=== PATIENT | female | born 1940 | race Caucasian/White ===

== ENCOUNTER 2016-05-14 07:24 | Inpatient (IN) | payer MEDICARE, OTHER ==
[2016-05-08 14:01] VITALS: Ht 152.4 cm; Wt 68.3 kg
[2016-05-08 14:13] VITALS: BP_SYST 148; RESP 18; TEMP 98
[2016-05-12 17:04] VITALS: BP_SYST 149; RESP 16; TEMP 98.3
[2016-05-13 19:45] VITALS: BP_SYST 88
[2016-05-13 21:45] VITALS: BP_SYST 126
[2016-05-14] VITALS (14 sets, daily range): BP systolic 122–159; RESP 16–20; TEMP 98–100.1
[~2016-05-14] VITALS: Ht 152.4 cm; Wt 68.3 kg
[~2016-05-14 07:24] MED LIST: CEFAZOLIN 2,000 MG in SODIUM CHLORIDE 0.9% 100 ML IV ONE
[2016-05-14] MEDS ORDERED: GLYCOPYRROLATE 0.2 MG/ML VIAL IV ONE ×2 (07:30→13:31)
[2016-05-14] MEDS ORDERED: LACT RINGERS 1,000 ML IV SCH (07:30)
[2016-05-14] MEDS ORDERED: MIDAZOLAM 2 MG/2 ML INJ IV ONE (07:30)
[2016-05-14] MEDS: LIDOCAINE 1% BUFFERED 1 ML SYR INTRADERM PRN ×2 (08:38→09:49)
[2016-05-14] MEDS ORDERED: ONDANSETRON 4 MG VIAL IV PRN ×2 (12:55→13:15)
[2016-05-14] MEDS ORDERED: CHLORASEPTIC 180 ML BTL PO PRN (12:55)
[2016-05-14] MEDS ORDERED: MORPHINE 4 MG/ML SYR IV PRN ×2 (12:55→13:15)
[2016-05-14] MEDS ORDERED: MORPHINE 2 MG/ML SYR IV PRN ×2 (12:55→13:15)
[2016-05-14] MEDS ORDERED: OXYCODONE 5 MG TAB PO PRN (13:15)
[2016-05-14] MEDS ORDERED: DILAUDID 1 MG/ML AMP IV PRN (13:15)
[2016-05-14] MEDS ORDERED: MEPERIDINE 25 MG/ML IV PRN (13:15)
[2016-05-14] MEDS ORDERED: FENTANYL 100 MCG/2 ML AMP IV ONE (13:31)
[2016-05-14] MEDS ORDERED: PHENYLEPHRINE 10 MG/ML VIAL IV ONE (13:31)
[2016-05-14] MEDS ORDERED: DEXAMETHASONE 4 MG/ML VIAL IV ONE (13:31)
[2016-05-14] MEDS ORDERED: ROCURONIUM 50 MG VIAL IV ONE (13:31)
[2016-05-14] MEDS ORDERED: ACETAMINOPHEN 1,000 MG/100 ML IV ONE (13:31)
[2016-05-14] MEDS ORDERED: PROPOFOL 20 ML VIAL IV ONE (13:31)
[2016-05-14] MEDS ORDERED: NEOSTIGMINE 10 MG/10 ML VIAL IV ONE (13:31)
[2016-05-14] MEDS ORDERED: LIDOCAINE 2% SYR 5 ML IV ONE (13:31)
[2016-05-14] MEDS ORDERED: ONDANSETRON 4 MG VIAL IV PUSH ONE (13:31)
[2016-05-14] MEDS ORDERED: BUPIVACA/EPI 0.5% 50ML NERVEBLOCK ONE (13:38)
[2016-05-14] MEDS ORDERED: GELATIN SPONGE 12 CM2 TOPICAL ONE (13:38)
[2016-05-14] MEDS ORDERED: BACITRACIN 50,000 UNITS INJ IRRIG ONE (13:38)
[2016-05-14] MEDS ORDERED: THROMBIN 5000 UNIT KIT TOPICAL ONE (13:38)
[2016-05-14] MEDS: BACLOFEN 10 MG TAB PO SCH ×2 (16:07→21:52)
[2016-05-14] MEDS: OXYCODONE/APAP 5/325 TAB PO PRN ×2 (16:08→21:53)
[2016-05-14] MEDS: CEFAZOLIN 2,000 MG in SODIUM CHLORIDE 0.9% 100 ML IV SCH (18:31)
[2016-05-14] MEDS: GABAPENTIN 100 MG CAP PO SCH ×2 (18:31→21:44)
[2016-05-14] MEDS: ESCITALOPRAM 10 MG TAB PO SCH (21:52)
[2016-05-14] MEDS: DOCUSATE SOD 100 MG CAP PO SCH (21:52)
[2016-05-14] MEDS: OXYBUTYNIN XL 5 MG TAB PO SCH (21:52)
[2016-05-14] MEDS: DONEPEZIL 10 MG TABLET PO SCH (21:52)
[2016-05-14] MEDS: KCL CR 10 MEQ TAB PO SCH (21:53)
[2016-05-14] MEDS: Atorvastatin 20 MG TAB PO SCH (21:54)
[2016-05-15] VITALS (8 sets, daily range): BP systolic 80–145; RESP 16–18; TEMP 98–99.5
[2016-05-15] MEDS: CEFAZOLIN 2,000 MG in SODIUM CHLORIDE 0.9% 100 ML IV SCH (02:50)
[2016-05-15] MEDS: OXYCODONE/APAP 5/325 TAB PO PRN ×4 (02:52→18:08)
[2016-05-15] MEDS: PREDNISOLONE ACET 1% OP SUSP EYE EACH SCH (08:58)
[2016-05-15] MEDS: LISINOPRIL 5 MG TAB PO SCH (08:59)
[2016-05-15] MEDS: CETIRIZINE 10 MG TAB PO SCH (08:59)
[2016-05-15] MEDS: DOCUSATE SOD 100 MG CAP PO SCH ×2 (08:59→21:14)
[2016-05-15] MEDS: OMEGA 3 FATTY ACIDS 1 GM CAP PO SCH (09:01)
[2016-05-15] MEDS: CHOLECALCIFEROL 1,000 UNITS TAB PO SCH (09:01)
[2016-05-15] MEDS: MULTIVITS/MINERALS (THERAGRAN M) TAB PO SCH (09:01)
[2016-05-15] MEDS: BACLOFEN 10 MG TAB PO SCH ×3 (09:01→21:14)
[2016-05-15] MEDS: TRIAMTER/HCTZ 37.5/25MG TAB PO SCH (09:01)
[2016-05-15] MEDS: KCL CR 10 MEQ TAB PO SCH ×2 (09:02→21:15)
[2016-05-15] MEDS: CALCIUM CARB/VIT D3 600 MG TAB PO SCH (09:02)
[2016-05-15] MEDS: GABAPENTIN 100 MG CAP PO SCH ×2 (18:07→21:15)
[2016-05-15] MEDS: ESCITALOPRAM 10 MG TAB PO SCH (21:14)
[2016-05-15] MEDS: Atorvastatin 20 MG TAB PO SCH (21:14)
[2016-05-15] MEDS: OXYBUTYNIN XL 5 MG TAB PO SCH (21:14)
[2016-05-15] MEDS: DONEPEZIL 10 MG TABLET PO SCH (21:17)
[2016-05-16] MEDS: ACETAMINOPHEN 325 MG TAB PO PRN ×3 (01:53→21:19)
[2016-05-16 03:18] VITALS: BP_SYST 137; RESP 16; TEMP 99.4
[2016-05-16] MEDS: SODIUM CHLORIDE 0.9% 1,000 ML IV SCH ×2 (06:30→18:08)
[2016-05-16] MEDS ORDERED: DEXAMETHASONE 10 MG/ML VIAL IV ONE (07:35)
[2016-05-16] MEDS: MULTIVITS/MINERALS (THERAGRAN M) TAB PO SCH (08:46)
[2016-05-16] MEDS: CALCIUM CARB/VIT D3 600 MG TAB PO SCH (08:46)
[2016-05-16] MEDS: OMEGA 3 FATTY ACIDS 1 GM CAP PO SCH (08:46)
[2016-05-16] MEDS: KCL CR 10 MEQ TAB PO SCH ×2 (08:46→21:05)
[2016-05-16] MEDS: CHOLECALCIFEROL 1,000 UNITS TAB PO SCH (08:47)
[2016-05-16] MEDS: DOCUSATE SOD 100 MG CAP PO SCH ×2 (08:47→21:05)
[2016-05-16] MEDS: BACLOFEN 10 MG TAB PO SCH ×3 (08:47→21:05)
[2016-05-16] MEDS: TRIAMTER/HCTZ 37.5/25MG TAB PO SCH (08:47)
[2016-05-16] MEDS: LISINOPRIL 5 MG TAB PO SCH (08:47)
[2016-05-16] MEDS: CETIRIZINE 10 MG TAB PO SCH (08:47)
[2016-05-16] MEDS: PREDNISOLONE ACET 1% OP SUSP EYE EACH SCH (08:47)
[2016-05-16 09:37] VITALS: BP_SYST 159; RESP 16; TEMP 99.1
[2016-05-16 12:19] VITALS: BP_SYST 149; RESP 16; TEMP 98.7
[2016-05-16] MEDS: GABAPENTIN 100 MG CAP PO SCH ×2 (18:07→21:05)
[2016-05-16] MEDS: DEXAMETHASONE 4 MG/ML VIAL IV SCH (18:08)
[2016-05-16 19:44] VITALS: BP_SYST 142; RESP 18; TEMP 98.2
[2016-05-16] MEDS: DONEPEZIL 10 MG TABLET PO SCH (21:05)
[2016-05-16] MEDS: Atorvastatin 20 MG TAB PO SCH (21:05)
[2016-05-16] MEDS: OXYBUTYNIN XL 5 MG TAB PO SCH (21:06)
[2016-05-16] MEDS: ESCITALOPRAM 10 MG TAB PO SCH (21:06)
[2016-05-16 23:56] VITALS: BP_SYST 154; RESP 18; TEMP 97.8
[2016-05-17] VITALS (7 sets, daily range): BP systolic 136–171; RESP 16–22; TEMP 97.9–98.4
[2016-05-17] MEDS: DEXAMETHASONE 4 MG/ML VIAL IV SCH ×4 (00:15→22:55)
[2016-05-17] MEDS: ACETAMINOPHEN 325 MG TAB PO PRN ×4 (05:51→22:55)
[2016-05-17] MEDS: SODIUM CHLORIDE 0.9% 1,000 ML IV SCH ×2 (08:38→20:54)
[2016-05-17] MEDS: CALCIUM CARB/VIT D3 600 MG TAB PO SCH (09:00)
[2016-05-17] MEDS: MULTIVITS/MINERALS (THERAGRAN M) TAB PO SCH (09:00)
[2016-05-17] MEDS: OMEGA 3 FATTY ACIDS 1 GM CAP PO SCH (09:00)
[2016-05-17] MEDS: CHOLECALCIFEROL 1,000 UNITS TAB PO SCH (09:00)
[2016-05-17] MEDS: DOCUSATE SOD 100 MG CAP PO SCH ×2 (09:00→20:54)
[2016-05-17] MEDS: TRIAMTER/HCTZ 37.5/25MG TAB PO SCH (09:06)
[2016-05-17] MEDS: CETIRIZINE 10 MG TAB PO SCH (09:06)
[2016-05-17] MEDS: KCL CR 10 MEQ TAB PO SCH ×2 (09:06→20:55)
[2016-05-17] MEDS: LISINOPRIL 5 MG TAB PO SCH (09:07)
[2016-05-17] MEDS: BACLOFEN 10 MG TAB PO SCH ×3 (09:07→20:55)
[2016-05-17] MEDS: PREDNISOLONE ACET 1% OP SUSP EYE EACH SCH (09:18)
[2016-05-17] MEDS: GABAPENTIN 100 MG CAP PO SCH ×2 (18:29→20:55)
[2016-05-17] MEDS: Atorvastatin 20 MG TAB PO SCH (20:55)
[2016-05-17] MEDS: DONEPEZIL 10 MG TABLET PO SCH (20:56)
[2016-05-17] MEDS: ESCITALOPRAM 10 MG TAB PO SCH (20:56)
[2016-05-17] MEDS: OXYBUTYNIN XL 5 MG TAB PO SCH (20:57)
[2016-05-18 04:08] VITALS: BP_SYST 189; RESP 22; TEMP 98.3
[2016-05-18] MEDS: NITROGLYCERIN SL 0.4 MG TAB SL ONE ×2 (04:32→05:16)
[2016-05-18] MEDS ORDERED: SODIUM CHLORIDE 0.9% 1,000 ML IV SCH (05:25)
[2016-05-18] MEDS ORDERED: NITROGLYCERIN SL 0.4 MG TAB SL ONE (05:30)
[2016-05-18 08:00] VITALS: BP_SYST 174; RESP 18; TEMP 98.2
[2016-05-18] MEDS: MULTIVITS/MINERALS (THERAGRAN M) TAB PO SCH (09:00)
[2016-05-18] MEDS: CALCIUM CARB/VIT D3 600 MG TAB PO SCH (09:00)
[2016-05-18] MEDS: CHOLECALCIFEROL 1,000 UNITS TAB PO SCH (09:00)
[2016-05-18] MEDS: OMEGA 3 FATTY ACIDS 1 GM CAP PO SCH (09:00)
[2016-05-18] MEDS ORDERED: Furosemide 20 MG TAB PO ONE (09:40)
[2016-05-18] MEDS ORDERED: SALINE FLUSH 10 ML FLUSH PRN (09:40)
[2016-05-18] MEDS ORDERED: SODIUM CHLORIDE 0.9% FLUSH BAG 500 ML IV PRN (09:40)
[2016-05-18] MEDS ORDERED: Furosemide 100 MG/10 ML VIAL IV ONE (10:05)
[2016-05-18] MEDS: PREDNISOLONE ACET 1% OP SUSP EYE EACH SCH (10:15)
[2016-05-18] MEDS: DEXAMETHASONE 4 MG/ML VIAL IV SCH ×2 (10:15→18:34)
[2016-05-18] MEDS: DOCUSATE SOD 100 MG CAP PO SCH ×2 (10:16→20:05)
[2016-05-18] MEDS: KCL CR 10 MEQ TAB PO SCH ×2 (10:16→20:06)
[2016-05-18] MEDS: BACLOFEN 10 MG TAB PO SCH ×3 (10:17→20:05)
[2016-05-18] MEDS: TRIAMTER/HCTZ 37.5/25MG TAB PO SCH (10:17)
[2016-05-18] MEDS: LISINOPRIL 5 MG TAB PO SCH (10:19)
[2016-05-18] MEDS: CETIRIZINE 10 MG TAB PO SCH (10:19)
[2016-05-18] MEDS ORDERED: MISSING DOSE XX ONE (10:40)
[2016-05-18 11:12] VITALS: BP_SYST 161; RESP 16; TEMP 97.9
[2016-05-18] MEDS: NITROGLYCERIN 0.4 MG/HR PATCH TRANSDERM SCH (11:54)
[2016-05-18] MEDS: ACETAMINOPHEN 325 MG TAB PO PRN ×2 (14:41→20:21)
[2016-05-18 15:21] VITALS: BP_SYST 143; RESP 18; TEMP 98.1
[2016-05-18] MEDS: GABAPENTIN 100 MG CAP PO SCH ×2 (18:35→20:05)
[2016-05-18 19:42] VITALS: BP_SYST 176; RESP 18; TEMP 98
[2016-05-18] MEDS: ESCITALOPRAM 10 MG TAB PO SCH (20:05)
[2016-05-18] MEDS: DONEPEZIL 10 MG TABLET PO SCH (20:05)
[2016-05-18] MEDS: Atorvastatin 20 MG TAB PO SCH (20:06)
[2016-05-18] MEDS: OXYBUTYNIN XL 5 MG TAB PO SCH (20:06)
[2016-05-18 22:50] VITALS: BP_SYST 158; RESP 18; TEMP 98.1
[2016-05-19] MEDS: DEXAMETHASONE 4 MG/ML VIAL IV SCH ×2 (00:07→08:43)
[2016-05-19] MEDS: ACETAMINOPHEN 325 MG TAB PO PRN (00:27)
[2016-05-19 03:10] VITALS: BP_SYST 184; RESP 18; TEMP 97.6
[2016-05-19 07:36] VITALS: BP_SYST 190; RESP 16; TEMP 98.3
[2016-05-19] MEDS: CALCIUM CARB/VIT D3 600 MG TAB PO SCH (08:43)
[2016-05-19] MEDS: PREDNISOLONE ACET 1% OP SUSP EYE EACH SCH (08:43)
[2016-05-19] MEDS: KCL CR 10 MEQ TAB PO SCH (08:44)
[2016-05-19] MEDS: BACLOFEN 10 MG TAB PO SCH (08:44)
[2016-05-19] MEDS: DOCUSATE SOD 100 MG CAP PO SCH (08:44)
[2016-05-19] MEDS: OMEGA 3 FATTY ACIDS 1 GM CAP PO SCH (08:44)
[2016-05-19] MEDS: CETIRIZINE 10 MG TAB PO SCH (08:45)
[2016-05-19] MEDS: TRIAMTER/HCTZ 37.5/25MG TAB PO SCH (08:45)
[2016-05-19] MEDS: CHOLECALCIFEROL 1,000 UNITS TAB PO SCH (08:45)
[2016-05-19] MEDS: MULTIVITS/MINERALS (THERAGRAN M) TAB PO SCH (08:45)
[2016-05-19] MEDS: LISINOPRIL 5 MG TAB PO SCH (08:45)
[2016-05-19] MEDS: NITROGLYCERIN 0.4 MG/HR PATCH TRANSDERM SCH (08:46)
[2016-05-19] MEDS ORDERED: amLODIPine 5 MG TAB PO SCH (10:55)
[2016-05-19 11:14] VITALS: BP_SYST 162; RESP 18; TEMP 97.6
[2016-05-19 11:33] VITALS: BP_SYST 190; RESP 16; TEMP 98.3
[2016-05-20] MEDS ORDERED: LISINOPRIL 20 MG TAB PO SCH (09:00)
== END 2016-05-19 14:20 | disposition home or self-care (01) | DRG 471 ==
LOC: ENRESERVTM → ENRESERVDT → SDS 07:24 → 5THE 13:58
PROVIDERS: ADMIT Neurological Surgery; ATTEND Neurological Surgery
PROC: 0RG20K0 Fusion of 2 or more Cervical Vertebral Joints with Nonautologous Tissue Substitute, Anterior Approach, Anterior Column, Open Approach (ICD-10-PCS; 2016-05-14)
PROC: 0RT30ZZ Resection of Cervical Vertebral Disc, Open Approach (ICD-10-PCS; principal; 2016-05-14 10:08)
DX: M48.02 Spinal stenosis, cervical region (principal); I50.31 Acute diastolic (congestive) heart failure; E78.00 Pure hypercholesterolemia, unspecified; Z83.3 Family history of diabetes mellitus; Z82.49 Family history of ischemic heart disease and other diseases of the circulatory system; Z82.3 Family history of stroke; Z80.9 Family history of malignant neoplasm, unspecified; I11.0 Hypertensive heart disease with heart failure
CPT/HCPCS: 71010; 76000; 80053; 82553; 83735; 83880; 84484; 85025; 93005; 94799